=== PATIENT | male | born 1970 | race Caucasian/White ===

== ENCOUNTER 2022-09-27 10:24 | Outpatient (CLI) | payer BC, SELFPAY ==
[2022-09-27 18:22] LABS: Basophils Absolute Auto 0.2 K/mm3 (0.0-0.1); Basophils Percent Auto 1.5 % (0.2-1.2); Eosinophils Absolute Auto 0.1 K/mm3 (0-0.3); Eosinophils Percent Auto 1.4 % (0-4.4); Hemoglobin 17.8 g/dL (14.0-18.0); Immature Granulocyte Absolute 0.02 K/mm3 (0.00-0.031); Immature Granulocyte Percent A 0.2 % (0-0.5); Lymphocytes Percent Auto 27.7 % (18.3-44.2); Mean Corpuscular HGB Conc 33.6 g/dl (32-36); Mean Corpuscular Hemoglobin 29.3 pg (26-34); Mean Corpuscular Volume 87.2 fl (80-100); Mean Platelet Volume 10.9 fl (7.4-10.4); Monocytes Absolute Auto 0.8 K/mm3 (0.1-0.6); Neutrophils Percent Auto 61.2 % (45.5-73.1); Platelet Count Result 314 k/mm3 (150-375); Red Blood Count 6.08 M/mm3 (4.6-6.20); Red Cell Distribution Width 13.7 % (11.5-14.5); White Blood Count 9.8 K/mm3 (4.5-10.0)
[2022-09-27 19:35] LABS: Alanine Aminotransferase 43 U/L (6-50); Albumin Level 4.7 g/dL (3.5-5.1); Alkaline Phosphatase 108 U/L (38-126); Anion Gap 13 mmol/L (8-16); Aspartate Amino Transferase 47 U/L (17-59); Bilirubin,Total 1.1 mg/dL (0.2-1.3); Blood Urea Nitrogen 11 mg/dL (9-20); Calcium 9.3 mg/dL (8.4-10.2); Carbon Dioxide 25 mmol/L (22-30); Chloride 107 mmol/L (98-107); Cholesterol 204 mg/dL (0-200); Estimated Glomerular Filt Rate > 60; Glucose 100 mg/dL (65-110); HDL Direct 35 mg/dL; Potassium 3.8 mmol/L (3.4-5.0); Sodium 145 mmol/L (137-145); Triglycerides 142 mg/dL (<150)
[2022-09-27 19:54] LABS: LDL Cholesterol Direct 145 mg/dL
[2022-09-27 20:07] LABS: Prostate Specific Antigen 0.9 ng/mL (< OR = 4.0)
[2022-09-27 20:17] LABS: Hemoglobin A1C 5.1 % (<5.7)
[2022-09-27 20:28] LABS: Vitamin D 25 Hydroxy 59.9 ng/mL
== END 2022-09-27 10:25 | disposition home or self-care (01) ==
LOC: ANHGOSHLAB 10:26
PROVIDERS: PCP Family Medicine; Visit Provider Family Medicine
DX: Z00.00 Encounter for general adult medical examination without abnormal findings (principal); E78.5 Hyperlipidemia, unspecified; Z79.899 Other long term (current) drug therapy; I10 Essential (primary) hypertension; R73.9 Hyperglycemia, unspecified; Z12.5 Encounter for screening for malignant neoplasm of prostate; E55.9 Vitamin D deficiency, unspecified
CPT/HCPCS: 36415; 80053; 80061; 82306; 83036; 84153; 84443; 85025; G0103

== ENCOUNTER 2022-11-22 08:26 | Outpatient (CLI) | payer BC, SELFPAY ==
--- NOTE | 2022-11-22 11:00 | NEURO_ITS ---
Impression: # History of bilateral hand numbness (left worse than right). # Normal nerve conduction study. # Normal needle/EMG exam. # Clinical correlation recommended. Motor Nerve Conduction Upper Extremities Median Nerve Conduction Velocity (m/sec) Terminal Latency (msec) Response Voltage(mV) Elbow-Wrist Wrist Elbow Wrist Right 53 3.0 8 9 Left 56 3.2 6 7 Ulnar Nerve Conduction Velocity (m/sec) Terminal Latency (msec) Response Voltage(mV) Above Elbow Below Elbow Wrist Above Elbow Below Elbow Wrist Right 55 59 2.3 7 8 8 Left 51 60 2.4 6 7 8 F-Wave Latency Median (ms) Ulnar (ms) Right 23.7 24.8 Left 25.4 24.6 Sensory Nerve Conduction Upper Extremities Median Nerve Stimulation Terminal Latency (msec) Wrist/Digit Response Voltage (uV) Wrist Right 3.2/3.2 36/34 Left 3.2/3.3 32/27 Ulnar Nerve Stimulation Terminal Latency (msec) Wrist/Digit Response Voltage (uV) Wrist Right 2.8 31 Left 2.8 39 Radial Nerve Terminal Latency (msec) Response Voltage(mV) Right 2.0 36 Left 2.1 47 Left Right Muscles Examined Fibrillation Fasciculation Scarcity Voltage Duration Left Right Left Right Left Right Left Right Left Right Deltoid Biceps X X Brachioradialis Triceps X X Pronator Teres X X Ext Indicis X X Ext Digitorum X X Abd Poll Brev X X 1st Dorsal Interosseus Paraspinals MTDD
== END 2022-11-22 08:27 | disposition home or self-care (01) ==
LOC: ANHNEURO 08:27
PROVIDERS: PCP Family Medicine; Visit Provider Family Medicine
DX: R20.2 Paresthesia of skin (principal)
CPT/HCPCS: 95886; 95911

== ENCOUNTER 2023-07-23 04:49 | Emergency (ER) | payer BC, SELFPAY ==
[2023-07-23] VITALS (17 sets, daily range): BP systolic 123–151; BP diastolic 82–89; PULSE 56–91; RESP 15–23; TEMP 36.8; O2SAT 93–100
--- NOTE | ~2023-07-23 | CT_ITS ---
EXAMINATION: CT abdomen pelvis w con INDICATION: Epigastric pain TECHNIQUE: Computed tomographic images of the abdomen and pelvis were obtained after the administrati on of 100 cc of Omnipaque 350 intravenous contrast. The dose-length product (DLP) was 1275.39 mGy-cm. Automated exposure control and iterative reconstruction technique were employed. COMPARISON: None available FINDINGS: Minimal dependent atelectasis is present in the lung bases. The heart size is normal. There is a 3.6 cm subcutaneous mass just to the left of midline in the back, likely sebaceous cyst. There is a small sliding hiatal hernia. There is wall thickening of the gastric antrum. The liver is diffus shaun low in attenuation when compared with the spleen, consistent with hepatic steatosis. There is a 1 5 mm peripherally enhancing lesion of the right hepatic lobe, likely hemangioma. The spleen, pancreas , gallbladder, and right adrenal gland are normal. There is an 11 mm mass of the left adrenal gland. Cysts of the kidneys measure up to 3 cm. There is a 12 mm hyperdense, exophytic mass of the left kidn ey upper pole. No pathologically enlarged abdominal or pelvic lymph nodes are identified. No free int raperitoneal gas or evidence of bowel obstruction. There is moderate lumbar spondylosis. There is a s mall umbilical hernia containing fat. IMPRESSION: 1. Wall thickening of the gastric antrum which could reflect gastritis or possibly underlying ulcer. 2. Indeterminate masses of the left kidney, left adrenal gland, and liver. Follow-up with nonemergent MRI without and with contrast is recommended. 3. Small sliding hiatal hernia. Reviewed, dictated and finalized at location A. IMPRESSION: 1. Wall thickening of the gastric antrum which could reflect gastritis or possi rakan underlying ulcer. 2. Indeterminate masses of the left kidney, left adrenal gland, and liver. Foll ow-up with nonemergent MRI without and with contrast is recommended. 3. Small sliding hiatal hernia.
[2023-07-23 07:06] LABS: Basophils Absolute Auto 0.1 K/mm3 (0.0-0.1); Basophils Percent Auto 0.5 % (0.2-1.2); Hematocrit 56.9 % (42.0-52.0); Immature Granulocyte Absolute 0.09 K/mm3 (0.00-0.031); Immature Granulocyte Percent A 0.5 % (0-0.5); Lymphocytes Absolute Auto 1.44 K/mm3 (0.9-3.2); Lymphocytes Percent Auto 8.5 % (18.3-44.2); Mean Corpuscular HGB Conc 33.4 g/dl (32-36); Mean Corpuscular Hemoglobin 28.8 pg (26-34); Mean Corpuscular Volume 86.3 fl (80-100); Mean Platelet Volume 10.4 fl (7.4-10.4); Monocytes Absolute Auto 1.1 K/mm3 (0.1-0.6); Monocytes Percent Auto 6.5 % (2.6-8.5); Neutrophils Absolute Auto 14.1 K/mm3 (1.3-6.7); Platelet Count Result 345 k/mm3 (150-375); Red Blood Count 6.59 M/mm3 (4.6-6.20); Red Cell Distribution Width 15.2 % (11.5-14.5); White Blood Count 16.9 K/mm3 (4.5-10.0)
[2023-07-23 07:16] LABS: Alanine Aminotransferase 34 U/L (6-50); Albumin Level 5.1 g/dL (3.5-5.1); Alkaline Phosphatase 125 U/L (38-126); Anion Gap 21 mmol/L (8-16); Aspartate Amino Transferase 39 U/L (17-59); Bilirubin,Total 3.1 mg/dL (0.2-1.3); Blood Urea Nitrogen 15 mg/dL (9-20); Calcium 10.1 mg/dL (8.4-10.2); Carbon Dioxide 28 mmol/L (22-30); Chloride 96 mmol/L (98-107); Estimated CRCL calculation 69 ml/min; Estimated Glomerular Filt Rate 49; Glucose 183 mg/dL (65-110); Lipase 62 U/L (23-300); Potassium 4.1 mmol/L (3.4-5.0); Sodium 145 mmol/L (137-145)
[2023-07-23 07:44] LABS: Appearance Urine Clear (Clear); Bacteria Urine None Seen /hpf; Bilirubin Urine 2+ (Negative); Blood Urine Negative (Negative); Color Urine Dark Yellow (Yellow); Glucose Urine UA Negative (Negative); Ketones Urine 4+ mg/dL (Negative); Leukocyte Esterase Ur Trace LEU/UL (Negative); Nitrate Urine Negative (Negative); Protein Urine 1+ mg/dL (Negative); RBC Urine 0-2 /hpf (0-2); Specific Grav Ur 1.029 (1.001-1.035); Squamous Epithelial Cell Urine None seen /hpf (Few); WBC Urine 0-5 /hpf; pH Urine 5.5 (5.0-9.0)
[2023-07-23 07:45] LABS: Add Urine Microscopic? YES
[2023-07-23] MEDS: ONDANSETRON INJ 4 MG/2 ML VIAL IV PUSH (07:49)
[2023-07-23] MEDS: SODIUM CHLORIDE 0.9% IV 1,000 ML 999 ML IV CONT ×2 (07:49)
--- NOTE | 2023-07-23 08:44 | ED.ABDPAIN ---
HPI - Abdominal Pain General Chief Complaint: Abdominal Pain Stated Complaint: N/V, abd pain Time Seen by Provider: 07/23/23 07:01 History of Present Illness HPI narrative: Patient is a 53-year-old male who presents ER with nausea and vomiting. Ongoing for couple of days. Worsened overnight. Reports he has been having 1 loose stool a day. No blood in stool and has not dark black. had similar symptoms earlier in the week but not to the same extent. No fevers chills. No chest pain or chest pressure. No blood in his stool. Reports his emesis has brown discoloration to it. Related Data Home Medications Medication Instructions Recorded Confirmed anastrozole 1 mg tablet 1 mg PO .2 X weekly 09/22/21 03/23/23 aspirin 81 mg tablet,delayed 81 mg PO DAILY 09/22/21 03/23/23 release (Adult Low Dose Aspirin) clomiphene citrate 50 mg tablet 50 mg PO WEEKLY 09/22/21 03/23/23 mecobalamin (vitamin B12) 1,000 1,000 mcg sublingual DAILY 09/22/21 03/23/23 mcg disintegrating tablet,sublingual omega-3 fatty acids 1,000 mg 1,000 mg PO DAILY 09/22/21 03/23/23 capsule (Fish Oil Concentrate) testosterone cypionate 200 mg/mL 200 mg IM WEEKLY 09/22/21 03/23/23 intramuscular oil (Depo-Testosterone) zinc gluconate 50 mg tablet 50 mg PO DAILY 09/22/21 03/23/23 famotidine 20 mg tablet 20 mg PO DAILY PRN 09/27/22 03/23/23 Allergies Allergy/AdvReac Type Severity Reaction Status Date / Time No Known Allergies Allergy Verified 03/23/23 08:57 Review of Systems Review of Systems: All systems reviewed & are unremarkable except as noted in HPI and below Constitutional: Constitutional: Denies chills, Reports fatigue and Denies fever(s) ENT: Denies nasal congestion and Denies sore throat Cardiovascular: Cardiovascular: Reports no additional cardiovascular complaints Respiratory: Respiratory: Reports no additional respiratory complaints Gastrointestinal: Gastrointestinal: Reports abdominal pain, Reports diarrhea, Reports nausea and Reports vomiting Genitourinary: Genitourinary: Reports no additional male genitourinary complaints Musculoskeletal: Musculoskeletal: Reports no additional musculoskeletal complaints [facility] Past Medical History Medical History Dyslipidemia Environmental allergies Fatty liver GERD (gastroesophageal reflux disease) Hepatic steatosis Hypogonadism Obesity, Class II, BMI 35-39.9 Primary hypertension Vitamin B12 deficiency Vitamin D deficiency Family History Family History Father Hypertension Family history of cardiovascular disease Mother Family history of malignant melanoma Grandparent Hypertension Sibling Hypertension Social History Social History Smoking status: Former smoker Smokeless tobacco user: chewing tobacco Second hand tobacco smoke exposure: No Alcohol intake: current Alcohol use details: 3-4 drinks weekly Substance use: current Substance use type: marijuana Other substance usage details: dispencery cannibus Lack of Transportation: No Lack of Food: Never True Current Housing: I Have Housing Concerned About Future Housing: No Difficulty Paying Gas/Electric Bills: No Difficulty Paying for Meds: No Currently Unemployed: No Education: Bachelor's Degree Difficulty w/ Childcare or Family Care: No Living arrangements: with family Occupation/Education: occupation Gender identity (if verbalized by the patient): Male Sexual Orientation (if Verbalized by the Patient): Straight or Heterosexual Agree to blood products: Yes Exam Narrative: GENERAL: Fatigued-appearing, well-nourished, and in no acute distress. HEAD: Normocephalic, atraumatic. ENT: Mucous membranes moist. NECK: Supple. CHEST: Clear to auscultation. No respiratory distress. HEART: Regular rate and
[2023-07-23] MEDS: MORPHINE SULFATE (*CRX) 4 MG/ML INJ IV PUSH (08:49)
[2023-07-23] MEDS: PROMETHAZINE HCL 25 MG/ML AMPUL 12.5 MG IV PUSH (08:55)
[2023-07-23] MEDS: PANTOPRAZOLE SODIUM IV 40 MG VIAL IV PUSH (09:56)
--- NOTE | 2023-07-23 09:59 | ECG_ITS ---
Measurements Intervals Cobb Rate: 70 P: 38 AL: 215 QRS: 8 QRSD: 93 T: 61 QT: 403 QTc: 437 Interpretive Statements SINUS RHYTHM WITH MARKED SINUS ARRHYTHMIA WITH FIRST DEGREE AV BLOCK DELAYED PRECORDIAL R/S TRANSITION NONSPECIFIC ST & T-WAVE ABNORMALITY- HIGH LATERAL LEADS BASELINE ARTIFACT- I, III, AVL BORDERLINE ECG NO PREVIOUS ECG AVAILABLE FOR COMPARISON Electronically Signed On 07-23-2023 16:39:51 CDT by Romero Cosme D.O.
== END 2023-07-23 11:00 | disposition home or self-care (01) ==
PROVIDERS: Emergency Medicine; Emergency Provider Emergency Medicine; PCP Family Medicine
DX: K29.70 Gastritis, unspecified, without bleeding (principal); E86.0 Dehydration; E78.5 Hyperlipidemia, unspecified; E53.8 Deficiency of other specified B group vitamins; E55.9 Vitamin D deficiency, unspecified; E66.8 Other obesity; Z68.33 Body mass index [BMI] 33.0-33.9, adult; K21.9 Gastro-esophageal reflux disease without esophagitis; Z87.891 Personal history of nicotine dependence; K44.9 Diaphragmatic hernia without obstruction or gangrene; N28.89 Other specified disorders of kidney and ureter; R16.0 Hepatomegaly, not elsewhere classified; E27.8 Other specified disorders of adrenal gland
CPT/HCPCS: 36415; 74177; 80053; 81001; 83690; 85025; 93005; 96361; 96374; 96375; 99284; C9113; J2270; J2405; J2550; J7030; Q9967

== ENCOUNTER 2023-08-18 13:30 | Outpatient (CLI) | payer BC, SELFPAY ==
--- NOTE | ~2023-08-18 | MR_ITS ---
EXAMINATION: MR abdomen wo/w con INDICATION: Indeterminate liver, kidney, and adrenal masses on CT TECHNIQUE: Coronal SSFSE ARC, WATER:coronal LAVA-FLEX, Coronal 2D FIESTA FatSat, Axial SSFSE BH ARC, Axial 3D DualEcho BH, Axial SSFSE-IR, Axial DWI b=500, Axial 2D FIESTA FatSat, pre and dynamic postco ntrast Axial LAVA ARC, postcontrast Coronal In and Opposed phase LAVA FLEX COMPARISON: CT, 07/23/2023 CONTRAST: Multihance, 20 cc FINDINGS: There is a 1.5 cm T1 hypointense, T2 hyperintense mass at the junction of liver segments I and VIII with interrupted peripheral nodular enhancement and gradual central filling, consistent wi th a hemangioma. The spleen, pancreas, gallbladder, and right adrenal gland are normal. There is a 10 mm mass of the left adrenal gland with loss of signal intensity on opposed phase images, consistent with an adenoma. There is a 12 mm hemorrhagic cyst of the left kidney upper pole corresponding to the lesion in question on the comparison CT. Simple cysts of the kidneys measure up to 2.8 cm on the lef t. There are no pathologically enlarged abdominal lymph nodes. No dilated loops of bowel are evident. No abnormal enhancement is present after contrast administration. IMPRESSION: 1. Liver hemangioma. 2. Hemorrhagic cyst of the left kidney. 3. Left adrenal adenoma. Reviewed, dictated and finalized at location F.
== END 2023-08-18 13:31 | disposition home or self-care (01) ==
PROVIDERS: PCP Family Medicine; Visit Provider Family Medicine
DX: E27.8 Other specified disorders of adrenal gland (principal); D35.02 Benign neoplasm of left adrenal gland; D18.09 Hemangioma of other sites; N28.1 Cyst of kidney, acquired
CPT/HCPCS: 74183; A9577